=== PATIENT | female | born 1970 | race Caucasian/White ===

== ENCOUNTER 2017-06-18 21:20 | Emergency (ER) | payer OTHER ==
[~2017-06-18] VITALS: Ht 170.2 cm; Wt 74.1 kg
[~2017-06-18 21:20] MED LIST: BACTRIM DS TAB1 EACH PO; BUPROPION XL300 MG PO; CEPHALEXIN500 MG PO; IBUPROFEN800 MG PO; METHYLPHENIDATE36 MG PO; MUPIROCIN22 GM TOP; SUMATRIPTAN SU100 MG PO
[2017-06-19] MEDS ORDERED: PROTONIX40 MG PO (00:42)
== END 2017-06-19 00:49 | disposition home or self-care (01) ==
LOC: ED 21:20
DX: R10.11 Right upper quadrant pain (principal); F90.9 Attention-deficit hyperactivity disorder, unspecified type; Z79.899 Other long term (current) drug therapy
CPT/HCPCS: 76705; 80053; 81001; 83690; 84703; 85025; 99284

== ENCOUNTER 2017-06-25 05:40 | Day surgery (SDC) | payer OTHER, SELFPAY ==
[~2017-06-25] VITALS: Ht 170.2 cm; Wt 73.9 kg
[~2017-06-25 05:40] MED LIST changes: +PROTONIX40 MG PO
[2017-06-25] MEDS ORDERED: IBUPROFEN600 MG PO (08:39)
[2017-06-25] MEDS ORDERED: OXYCODON-ACETA1 EAC2 PO (08:39)
[2017-06-25] MEDS ORDERED: MAPAP325 MG PO (08:40)
--- NOTE | 2017-06-25 08:43 | NUR ---
06/25/17 0843 Thi Yadav 0828-PATIENT ARRIVED TO PACU ON 8L MASK O2 SAT 100% PATIENT NONAROUSABLE. ORAL AIRWAY IN PLACE. 4 LAP SITES TO ABDOMEN STERI STRIPS SMALL AMT OF SHADOWING. 0842-PATIENT AROUSING TO VERBAL STIMULI OPENING EYES AND MOVING HANDS. ORAL AIRWAY REMOVED. WEANED TO 6L MASK O2 SAT 100% PATIENT SLEEPING.
--- NOTE | 2017-06-25 09:28 | NUR ---
ICED WATER AND APPLESAUCE GIVEN. CALL LIGHT W/IN REACH. SIG OTHER @ BS.
[2017-06-25] MEDS ORDERED: TYLENOL WITH C1 EACH PO (10:36)
--- NOTE | 2017-06-25 10:36 | NUR ---
PT C/O "GAS PAIN". EDUCATION DONE. PT VERBALIZES UNDERSTANDING. MORE APPLESAUCE GIVEN.
--- NOTE | 2017-06-25 11:39 | NUR ---
APPLESAUCE GIVEN. PT C/O INCREASED "GAS PAIN" AND REPORTS "TYLENOL #3 IS NOT CUTTING IT". PT REPORTS HAVING PERCOCET PRESCRIPTION AT HOME FROM DR. CUMMINGS AND STATES SHE WILL TRY TO TAKE THAT. PERCOCET PO GIVEN HERE @ THIS TIME. WILL CONTINUE TO MONITOR. PT DENIES NAUSEA.
--- NOTE | 2017-06-25 12:29 | NUR ---
PT UP TO BR W/RN STANDBY. PT AMBULATES WELL AND DENIES DIZZINESS. PT VOIDS 400 ML DARK YELLOW URINE AND REQ DC HOME.
--- NOTE | 2017-06-25 12:34 | NUR ---
DC INSTRUCTIONS GIVEN IN PRESENCE OF BOYFRIEND AND BOTH VERBALIZE UNDERSTANDING. PT DRESSES SELF IN PRESENCE OF BOYFRIEND.
--- NOTE | 2017-06-26 08:51 | OR ---
[facility] [address], [place] [address] Signed DATE OF OPERATION: 06/25/2017 SURGEON: Mike Cummings MD PREOPERATIVE DIAGNOSIS: Chronic calculous cholecystitis. POSTOPERATIVE DIAGNOSIS: Chronic calculous cholecystitis. PROCEDURES: 1. Laparoscopic cholecystectomy with intraoperative cholangiogram. 2. Surgeon-directed fluoroscopy. ANESTHESIA: General endotracheal, Arielle Jose, [employer] and local 10 mL of 0.25% Marcaine without epinephrine local anesthetic. INDICATION: This 47-year-old white woman is a patient of Keisha Damico and has had chronic recurrent right subcostal and epigastric pain, sometimes radiating to the subscapular area. Her symptoms are completely typical of episodic biliary symptoms. A gallbladder ultrasound was performed, which shows a "gallbladder polyp," but I believe it more likely to be a nonshadowing adherent gallstone. She clearly has biliary symptoms. A CCK-HIDA test is not indicated. She was admitted at this time to undergo laparoscopic cholecystectomy, possible open procedure. Understands the risks of bleeding, infection, bile duct injury, need for other indicated procedures, need for conversion to open operation, and of course failure to cure her symptoms. Understand these risks, she wished to proceed. FINDINGS: The gallbladder was chronically inflamed. There were omental adhesions to the undersurface of the gallbladder. The liver was normal. Cholangiogram was normal. The common duct was easily identified and certainly not harmed. The gallbladder once excised and opened showed a 3-4 mm adherent cholesterol type gallstone to the mucosa. There was chronic inflammatory change in the mucosa otherwise. DESCRIPTION OF PROCEDURE: The patient was brought to the operating room, given a general endotracheal anesthetic. Electronically Signed By: MIKE CUMMINGS MD 06/26/17 0851 PATIENT NAME: CLAUDIO PHILLIPS OPERATIVE REPORT DATE OF : 74 PHYSICIAN: MIKE CUMMINGS MD REPORT #: [id number] REPORT IS CONFIDENTIAL AND NOT TO BE RELEASED WITHOUT AUTHORIZATION [facility] [address], [place] [address] Signed Preoperative antibiotic Ancef was given. Sequential compression device stockings used and heparin subcutaneously administered. The abdomen was prepared with a chlorhexidine solution and draped sterilely. An infraumbilical incision was made and using an open Ramana cannula technique, pneumoperitoneum achieved to a level of 14 mmHg with carbon dioxide gas. Intra-abdominal inspection showed no sign of ascites or carcinomatosis. The gallbladder was dull in its appearance and suggestive of chronic cholecystitis. The liver appeared normal. Three additional trocars were placed in usual configuration in the subxiphoid, right midclavicular, and right anterior axillary line. The gallbladder was elevated cephalad and adhesions to the undersurface with omentum were taken down with sharp and blunt dissection. The additional elevation of the gallbladder was undertaken. The infundibulum was grasped and retracted laterally. Given her thin body habitus, the surrounding biliary tree could easily be identified including the common duct. Using blunt and electrocautery dissection and minimal amounts, the triangle of Calot and cystic duct and cystic artery were clearly delineated. Two clips were applied across the cystic duct and a clip applied across the gallbladder cystic duct junction. A transverse choledochotomy was made in the cystic duct. Retrograde milking of the cystic duct showed somewhat thickened clear bile, but no stones. Using the Shelby type cholangiocatheter, intraoperative cholangiography was undertaken. Using surgeon-directed fluoroscopy, free flow of contrast was noted into the biliary tree. The cystic duct was of normal size and configuration and the biliary tree filled well and filled in a retrograde fashion normally as well. There was no sign of filling defect or biliary anomaly. The catheter was removed and the cystic duct was triply clipped and divided and the gallbladder dissected free in a retrograde fashion. The cystic artery was divided with electrocautery. The gallbladder was extracted through the infraumbilical port site without problem under direct visualization, opened on the back table and found to have a single adherent gallstone as well as chronic inflammatory change of the mucosa of the gallbladder. Irrigation was undertaken in the subhepatic space. There was no sign of bile leak, bleeding, or other problems. The trocars were removed under direct visualization showing no bleeding. Attention was turned towards closure. The infraumbilical fascial incision was reapproximated with interrupted 0 Vicryl suture. All wounds were copiously irrigated with saline solution, the skin was closed with interrupted 2-0 Vicryl, Steri-Strips were applied. The patient was ultimately extubated and transported to recovery room in good condition having suffered no complication. Sponge, needle, and instrument counts reported as correct x3. Mike Cummings MD Electronically Signed By: MIKE CUMMINGS MD 06/26/17 0851 PATIENT NAME: CLAUDIO PHILLIPS OPERATIVE REPORT DATE OF : 74 PHYSICIAN: MIKE CUMMINGS MD REPORT #: [id number] REPORT IS CONFIDENTIAL AND NOT TO BE RELEASED WITHOUT AUTHORIZATION [address] [place], [place] [address] Signed /[facility] /[id number] Electronically Signed By: MIKE CUMMINGS MD 06/26/17 0851 PATIENT NAME: LCAUDIO PHILLIPS OPERATIVE REPORT DATE OF : 74 PHYSICIAN: MIKE CUMMINGS MD REPORT #: [id number] REPORT IS CONFIDENTIAL AND NOT TO BE RELEASED WITHOUT AUTHORIZATION
== END 2017-06-25 12:45 | disposition home or self-care (01) ==
LOC: DS 05:40
PROVIDERS: Surgery
PROC: BF13YZZ Fluoroscopy of Gallbladder and Bile Ducts using Other Contrast (ICD-10-PCS; 2017-06-25)
PROC: 0FT44ZZ Resection of Gallbladder, Percutaneous Endoscopic Approach (ICD-10-PCS; principal; 2017-06-25 06:45)
DX: K81.1 Chronic cholecystitis (principal); F41.9 Anxiety disorder, unspecified; Z87.442 Personal history of urinary calculi; Z79.899 Other long term (current) drug therapy
CPT/HCPCS: 00790; 74300; J0131; J0690; J1100; J1644; J1885; J2250; J2270; J2405; J2704; J3010; J3475; J7120; Q9967

== ENCOUNTER 2017-11-14 17:42 | Emergency (ER) | payer OTHER ==
[~2017-11-14] VITALS: Ht 170.2 cm; Wt 74.1 kg
[~2017-11-14 17:42] MED LIST changes: +IBUPROFEN600 MG PO; +MAPAP325 MG PO; +OXYCODON-ACETA1 EAC2 PO; +TYLENOL WITH C1 EACH PO
[2017-11-14] MEDS ORDERED: CONCERTA36 MG PO (17:50)
[2017-11-14] MEDS ORDERED: PERCOCET 5-3251 EACH PO (19:44)
[2017-11-14] MEDS ORDERED: ZOFRAN ODT4 MG PO (19:44)
[2017-11-14] MEDS ORDERED: KEFLEX500 MG PO (19:48)
== END 2017-11-14 19:55 | disposition home or self-care (01) ==
LOC: ED 17:42
PROC: 0JCQ3ZZ Extirpation of Matter from Right Foot Subcutaneous Tissue and Fascia, Percutaneous Approach (ICD-10-PCS; principal; 2017-11-14)
DX: S90.851A Superficial foreign body, right foot, initial encounter (principal); W45.8XXA Other foreign body or object entering through skin, initial encounter; F90.9 Attention-deficit hyperactivity disorder, unspecified type; Z79.899 Other long term (current) drug therapy
CPT/HCPCS: 28190; 73630; 99283

== ENCOUNTER 2023-05-31 18:53 | Emergency (ER) | payer OTHER ==
[~2023-05-31] VITALS: Ht 170.2 cm; Wt 77.1 kg
[~2023-05-31 18:53] MED LIST changes: +CONCERTA36 MG PO; +KEFLEX500 MG PO; +NORCO 5-325 TA1 EACH PO; +PERCOCET 5-3251 EACH PO; +VITAMIN D32000 UNI1 PO; +ZOFRAN ODT4 MG PO
[2023-05-31 20:22] VITALS: BP 127/77
== END 2023-05-31 20:23 | disposition home or self-care (01) ==
LOC: ED 18:53
DX: G43.909 Migraine, unspecified, not intractable, without status migrainosus (principal); Z79.899 Other long term (current) drug therapy
CPT/HCPCS: 96374; 96375; 99283-25; J0780; J1200; J1885; J3030; J7121

== ENCOUNTER 2025-02-10 11:45 | Day surgery (SDC) | payer OTHER ==
[~2025-02-10 11:45] MED LIST changes: +IBLOOD GLUCOSE TEST STRIP 1 EA TEST VI PRN; +LACTATED RINGER'S 1,000 ML IV SCH; +LIDOCAINE HCL 1% 5 ML SDV INJ ONE; +MIDAZOLAM HCL 5 MG/5 ML VIAL IV PRN; +fentaNYL citrate 100 MCG/2 ML VIAL IV PRN
[2025-02-10 12:08] VITALS: BP 123/73
[2025-02-10] MEDS ORDERED: fentaNYL citrate 100 MCG/2 ML VIAL ONE (12:44)
[2025-02-10] MEDS ORDERED: MIDAZOLAM HCL 5 MG/5 ML VIAL ONE (12:44)
[2025-02-10 14:39] VITALS: BP 106/74
--- NOTE | 2025-02-10 14:43 | NUR ---
02/10/25 1443 Yamel Barreto 1401- PT PRESENTS TO PACU, AWAKE BUT DROWSY. 4L O2 PER NC, BREATHING EVEN AND NON LABORED. LR INFUSING TO LH IV. ABD SOFT, NON DISTENDED. ENCOURAGED TO PASS GAS, DENIES PAIN OR NAUSEA. ALL MONITORS IN PLACE. 1404- PT MOVED TO ROOM AIR. RESTING INTERMITTENTLY 1413- DR CUMMINGS AT BEDSIDE, WAKES EASILY TO VERBAL STIMULUS. 1415- ROLLED TO BACK AND HEAD OF BED ELEVATED. 1417- PT MOVED TO HIGH FOWLERS, APPLE JUICE PROVIDED. PT HAS NO COMPLAINTS. TOLERATING WELL. 1422- D/C INSTRUCTIONS GIVEN, PT VERBALIZED UNDERSTANDING. 1425- PT UP TO SIDE OF BED TO DRESS, DAUGHTER CALLED FOR RIDE. 1431- PT TRANSFERRED TO WHEELCHAIR WITH STEADY GAIT. SALINE LOCK REMOVED, TIP INTACT, DRESSING APPLIED. PT TAKEN OUT TO MEET DAUGHTER WITH ALL BELONGINGS.
--- NOTE | 2025-02-13 13:51 | OR ---
[facility] [address] [place], [place] [address] Signed DATE OF OPERATION: 02/10/2025 SURGEON: Mike Cummings MD PREOPERATIVE DIAGNOSIS: Colon screening. POSTOPERATIVE DIAGNOSIS: Normal colon to cecum. PROCEDURE: Total colonoscopy to cecum. ANESTHESIA: Intravenous sedation, fentanyl 200 mcg and Versed 10 mg. INDICATION: This 54-year-old white woman is a patient of MICHELLE Castillo. She underwent laparoscopic cholecystectomy by me in the past. This was in 2018. She is referred at this time for screening colonoscopy. She has never had colonoscopy or colon evaluation otherwise. She has no symptoms of bleeding, diarrhea or constipation and no family history of colon cancer. She understands risk of colonoscopy including but not limited to bleeding, infection, and perforation and wished to proceed. FINDINGS: The prep was excellent. Complete colonoscopy was undertaken to the cecum without question. There was no evidence of polyps, diverticular formation, colitis, or cancer. DESCRIPTION OF PROCEDURE: The patient was brought to the endoscopy suite and placed in lateral decubitus position, given intravenous sedation to the point of slurred speech and nystagmus. Digital rectal examination was normal. An Olympus video colonoscope was passed in the rectum and manipulated throughout the colon, ultimately intubating the cecum itself. She required more sedation than expected but had no significant pain at all during the procedure. Upon entry to the cecum scope was carefully withdrawn. Examination throughout showed no sign of abnormality specifically no polyps, diverticular formation, colitis, or cancer. Retroflexed view was normal. The scope was removed. The patient was taken to recovery room in good condition. CONCLUDING DIAGNOSIS: Electronically Signed By: MIKE CUMMINGS MD 02/13/25 1351 PATIENT NAME: CLAUDIO PHILLIPS OPERATIVE REPORT DATE OF : 74 REPORT #: [id number] PHYSICIAN: MIKE CUMMINGS MD PCP: OBDULIO KASPER REPORT IS CONFIDENTIAL AND NOT TO BE RELEASED WITHOUT AUTHORIZATION [facility] [address] [place], [place] [address] Signed Normal colon to cecum. PLAN: Based on current recommendations, repeat colonoscopy in 10 years, sooner if symptoms should develop. She will return to the ongoing care of MICHELLE Castillo. MD GREGORIO Palomo/JASL /[id number] cc: MICHELLE Castillo Copies: OBDULIO KASPER ~ Electronically Signed By: MIKE CUMMINGS MD 02/13/25 1351 PATIENT NAME: CLAUDIO PHILLIPS OPERATIVE REPORT DATE OF : 74 REPORT #: [id number] PHYSICIAN: MIKE CUMMINGS MD PCP: OBDULIO KASPER REPORT IS CONFIDENTIAL AND NOT TO BE RELEASED WITHOUT AUTHORIZATION
== END 2025-02-10 14:31 | disposition home or self-care (01) ==
LOC: DS 11:45 → OPS 11:45 → DS 13:00 → OPS 14:31
PROVIDERS: ATTEND Surgery
PROC: 0DJD8ZZ Inspection of Lower Intestinal Tract, Via Natural or Artificial Opening Endoscopic (ICD-10-PCS; principal; 2025-02-10 13:00)
DX: Z12.11 Encounter for screening for malignant neoplasm of colon (principal); F32.A Depression, unspecified; Z90.49 Acquired absence of other specified parts of digestive tract
CPT/HCPCS: 99153; G0500; J2250; J3010